=== PATIENT | female | born 2000 | race Caucasian/White ===

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

== ENCOUNTER 2021-03-16 23:41 | Emergency (ER) | payer OTHER ==
[~2021-03-16 23:41] MED LIST: ANTIVERT25 MG PO; BENTYL10 MG PO; FLEXERIL10 MG PO; MOTRIN600 MG PO; PRINIVIL20 MG PO; ZITHROMAX500 MG PO; ZOFRAN4 MG PO; ZOFRAN4 MG SL; [UNRECOGNIZED DRUG - OTHER] PO
[2021-03-17 00:30] LABS: BASOPHIL 0.5 % (0-2); EOSINOPHIL 5.9 % (0-5); HCT 40.1 % (37.0-47.0); HGB 12.9 g/dl (12.5-16.0); LYMPHOCYTE 43.1 % (15-48); MCH 30.4 pg (25.0-31.0); MCHC 32.2 g/dL (32.0-36.0); MCV 94.6 fL (78.0-100.0); MONOCYTE 10.2 % (0-12); MPV 10.3 fL (6.0-9.5); NRBC 0; PLT 232 K/uL (150-400); RBC 4.24 M/uL (4.20-5.40); RDW 12.9 % (11.5-14.0); WBC 3.7 K/uL (4.0-10.5)
[2021-03-17 00:59] LABS: ALBUMIN 3.8 g/dL (3.4-5.0); BILIRUBIN - TOTAL 0.2 mg/dL (0.2-1.0); BUN/CREAT RATIO (CALC) 11.6 RATIO; CREATININE 0.86 mg/dL (0.51-0.95); GLOBULIN (CALCULATION) 3.8 g/dL; POTASSIUM 4.2 mmol/L (3.5-5.1); TOTAL PROTEIN 7.6 g/dL (6.4-8.2)
[2021-03-17 01:01] LABS: BILIRUBIN NEGATIVE (NEGATIVE); BLOOD NEGATIVE Ery/uL (NEGATIVE); CLARITY CLEAR (CLEAR); COLOR YELLOW (YELLOW); GLUCOSE (U) NORMAL (NORMAL); LEUKOCYTES NEGATIVE Leu/uL (NEGATIVE); NITRITE NEGATIVE (NEGATIVE); PROTEIN NEGATIVE (NEGATIVE); SPECIFIC GRAVITY 1.025 (1.001-1.030); UROBILINOGEN 0.2 mg/dL (0.2-1.0); pH 5.5 (5.0-9.0)
== END 2021-03-17 02:25 | disposition home or self-care (01) ==
LOC: FER 23:41
PROVIDERS: Emergency Medicine
DX: U07.1 COVID-19 (principal)
CPT/HCPCS: 36415; 80053; 81003; 85025; 93005

== ENCOUNTER → 2022-02-09 | Day surgery (SDC) | payer OTHER ==
[~2022-02-09] VITALS: Ht 190.5 cm; Wt 123.9 kg
[~2022-02-09] MED LIST changes: +PROTONIX 40MG T40 MG PO
[2022-02-09 11:56] LABS: HCG (URINE) SCREEN NEGATIVE (NEGATIVE)
== END | disposition home or self-care (01) ==
LOC: FAS 11:15
PROVIDERS: Student in an Organized Health Care Education/Training Program
DX: K29.50 Unspecified chronic gastritis without bleeding (principal); K22.10 Ulcer of esophagus without bleeding; F32.A Depression, unspecified; F41.9 Anxiety disorder, unspecified; Z88.8 Allergy status to other drugs, medicaments and biological substances
CPT/HCPCS: 84703; J2250; J2704; J7120